=== PATIENT | female | born 1985 | race Two or more races ===

== ENCOUNTER → 2021-04-01 15:01 | Outpatient (BNVA) | payer OTHER, SELFPAY | PROVIDERS: PCP Nurse Practitioner Community Health; Visit Provider Obstetrics & Gynecology | DX: Z13.89 Encounter for screening for other disorder (principal) | CPT/HCPCS: 99202 ==

== ENCOUNTER 2021-05-22 08:13 | Outpatient (REF) | payer OTHER, SELFPAY ==
[2021-05-22 15:05] LABS: CT PCR NOT DETECTED (Not Detect.); NG PCR NOT DETECTED (Not Detect.)
== END 2021-05-22 08:14 | disposition home or self-care (01) ==
LOC: HO.LAB 08:13
PROVIDERS: PCP Nurse Practitioner Community Health; Visit Provider Obstetrics & Gynecology
DX: Z30.430 Encounter for insertion of intrauterine contraceptive device (principal); E78.00 Pure hypercholesterolemia, unspecified
CPT/HCPCS: 58300; 87491; 87591

== ENCOUNTER → 2021-06-24 11:31 | Outpatient (BNVA) | payer OTHER, SELFPAY | PROVIDERS: PCP Nurse Practitioner Community Health; Visit Provider Obstetrics & Gynecology | DX: Z30.431 Encounter for routine checking of intrauterine contraceptive device (principal) | CPT/HCPCS: 81003; 81025; 99212 ==

== ENCOUNTER 2021-12-04 13:10 | Outpatient (REF) | payer OTHER, SELFPAY ==
[2021-12-04 17:52] LABS: CT PCR NOT DETECTED (Not Detect.); NG PCR NOT DETECTED (Not Detect.)
[2021-12-12 12:46] LABS: HPV mRNA E6/E7 rflx Not Detected (Not Detected)
== END 2021-12-04 13:11 | disposition home or self-care (01) ==
LOC: HO.LAB 13:10
PROVIDERS: PCP Nurse Practitioner Community Health; Visit Provider Obstetrics & Gynecology
DX: Z01.419 Encounter for gynecological examination (general) (routine) without abnormal findings (principal); N93.9 Abnormal uterine and vaginal bleeding, unspecified; Z32.02 Encounter for pregnancy test, result negative; Z97.5 Presence of (intrauterine) contraceptive device
CPT/HCPCS: 81025; 87491; 87591; 87624; 88142; 99212

== ENCOUNTER 2021-12-06 10:03 | Outpatient (REF) | payer OTHER, SELFPAY ==
[2021-12-06 11:06] LABS: Hematocrit 38.5 % (37.0-47.0); Hemoglobin 12.9 g/dl (12.0-16.0); Mean Corpuscular HGB Conc 33.5 g/dl (31.0-35.0); Mean Corpuscular Hemoglobin 28.8 pg (27.0-33.0); Mean Corpuscular Volume 85.9 fL (80.0-98.0); Platelet Count 225 X10*3/uL (160-400); Red Blood Count 4.48 X10*6/uL (4.20-5.50); Red Cell Distribution Width 12.5 % (11.0-16.0); White Blood Count 5.2 X10*3/uL (4.8-10.8)
[2021-12-06 11:58] LABS: HCG Quantitative < 2 mIU/mL; TSH reflex Free T4 0.94 uIU/mL (0.32-4.0)
== END 2021-12-06 10:04 | disposition home or self-care (01) ==
LOC: HO.LAB 10:03
PROVIDERS: Visit Provider Obstetrics & Gynecology
DX: N93.9 Abnormal uterine and vaginal bleeding, unspecified (principal)
CPT/HCPCS: 36415; 84443; 84702; 85027

== ENCOUNTER 2021-12-10 16:10 | Outpatient (REF) | payer OTHER, SELFPAY ==
--- NOTE | ~2021-12-10 | US_ITS ---
EXAMINATION: US PELVIS CLINICAL INFORMATION: Abnormal uterine and vaginal bleeding. COMPARISON: None TECHNIQUE: Ultrasound of the pelvis is performed using both transabdominal and transvaginal transducers along with Doppler. Transvaginal imaging is performed due to inadequate visualization transabdominally. FINDINGS: Uterus: The uterus is anteverted and measures 11.4 cm in length, 4.6 mL in AP and 6.9 cm in transverse dimension. The double wall endometrium is not optimally visualized due to an IUD in place. It roughly measures 0.7 cm in thickness. The uterus is smooth in contour and has normal myometrial echogenicity. No visible fibroid. Adnexa: Both ovaries are visualized. There is normal color flow to the adnexa. There is no ovarian torsion. There is no pelvic ascites or fluid collection. It appears unremarkable Right ovary measures 4.5 x 1.9 x 3.1 cm and volume 13.9 mL. The ovary appears unremarkable. There is anechoic cyst measuring 1.8 x 1.5 x 1.3 cm. Left ovary measures 2.5 x 1.2 x 2.0 cm and volume 3.1 mL. There is small amount of free fluid in the cul-de-sac. US/US pelvic and transvaginal IMPRESSION: There is intrauterine contraceptive device in correct position. There is anechoic cyst right ovary measuring 1.8 cm. The left ovary is unremarkable. There is small amount of free fluid in the cul-de-sac.
== END 2021-12-10 16:11 | disposition home or self-care (01) ==
LOC: HO.US 16:10
PROVIDERS: Visit Provider Obstetrics & Gynecology
DX: N93.9 Abnormal uterine and vaginal bleeding, unspecified (principal)
CPT/HCPCS: 76830; 76856

== ENCOUNTER 2021-12-24 09:12 | Outpatient (REF) | payer OTHER, SELFPAY | END 2021-12-24 09:13 | disposition home or self-care (01) | LOC: HO.LAB 09:12 | PROVIDERS: Visit Provider Obstetrics & Gynecology | DX: Z30.432 Encounter for removal of intrauterine contraceptive device (principal); N93.9 Abnormal uterine and vaginal bleeding, unspecified | CPT/HCPCS: 58100; 58301; 88305; 99212 ==

== ENCOUNTER → 2022-01-16 08:22 | Outpatient (BNVA) | payer OTHER, SELFPAY | PROVIDERS: Visit Provider Obstetrics & Gynecology | DX: N93.9 Abnormal uterine and vaginal bleeding, unspecified (principal) | CPT/HCPCS: 99212 ==

== ENCOUNTER → 2022-04-23 13:10 | Outpatient (BNVA) | payer OTHER, SELFPAY | PROVIDERS: PCP Internal Medicine; Visit Provider Obstetrics & Gynecology | DX: Z30.9 Encounter for contraceptive management, unspecified (principal) | CPT/HCPCS: 99212 ==

== ENCOUNTER 2025-03-21 09:10 | Outpatient (REF) | payer OTHER, SELFPAY ==
[2025-03-21 13:39] LABS: MANUAL DIFF FLAG NO
[2025-03-21 13:42] LABS: Hematocrit 37.8 % (37.0-47.0); Hemoglobin 12.4 g/dl (12.0-16.0); Mean Corpuscular HGB Conc 32.8 g/dl (31.0-35.0); Mean Corpuscular Hemoglobin 27.8 pg (27.0-33.0); Mean Corpuscular Volume 84.8 fL (80.0-98.0); Red Blood Count 4.46 X10*6/uL (4.20-5.50); White Blood Count 4.7 X10*3/uL (4.8-10.8)
[2025-03-21 13:43] LABS: Imm Gran Abs Auto 0.01 X10*3/uL (0.00-0.03); Imm Gran Pct Auto 0.2 % (0.0-0.4); Lymphocytes Absolute Auto 1.5 X10*3/uL (1.2-4.9); NRBC Abs Auto 0.000 X10*3/uL (0.0-0.012); NRBC Pct Auto 0.0 /100WBC (0.0-0.2); Platelet Count 253 X10*3/uL (160-400)
[2025-03-21 14:09] LABS: Alanine Aminotransferase 11 U/L (0-31); Aspartate Amino Transferase 19 U/L (5-31); Estimated Glomerular Filt Rate > 60
[2025-03-22 09:58] LABS: Anti Nuclear Antibody Screen NEGATIVE (NEGATIVE)
== END 2025-03-21 09:11 | disposition home or self-care (01) ==
LOC: HO.HKASLDS 09:10
PROVIDERS: PCP Internal Medicine; Visit Provider Internal Medicine Rheumatology
DX: M79.641 Pain in right hand (principal); M79.642 Pain in left hand; Z79.899 Other long term (current) drug therapy
CPT/HCPCS: 36415; 82565; 84450; 84460; 85025; 85652; 86038; 86140; 99212

== ENCOUNTER 2025-03-21 09:10 | Outpatient (AMB) | payer OTHER, SELFPAY ==
[2025-03-21 09:16] VITALS: BP 100/70; PULSE 82; O2SAT 97; BMI 28.8
--- NOTE | 2025-03-21 09:16 | A.OFFVIS_ITS ---
Vital Signs 03/21/25 09:16 Height 5 ft 6 in Weight 178 lb 9.191 oz BMI 28.8 BP 100/70 Blood Pressure Location Lt brachial Position Sitting Pulse 82 Pulse Source Pulse Oximeter Pulse Oximetry (%) 97 Oxygen Delivery Method Room Air Intake Visit Reasons: OA/ join pain Intake Note: Patient presents today for arthritis.PAtients states that she has been having bilateral hand pain for the past 2 months. Accompanied by: Self / Same As Patient Allergies No Known Allergies Allergy (Verified 03/21/25 09:16) HPI HPI OA/ join pain: Details: I last saw patient November 2023. She is having pain and stiffness in hands all day. Pain in her hands have progressed involving more joints in hands and now bilateral. In the past she was experiencing most of her pain localized to right MCP radiating down her finger. A year ago she had an episode of pain in her right 5th MCP with joint swelling resolved with meloxicam. Sometimes she has pain in elbows. Her elbows feels stuck when in position too long. Takes ibuprofen 600mg every 6-8 hours. Takes NSAID at night to help her sleep. Increase pain with activity. She went to PT for back pain. Intermittent back pain. She wakes up with back pain sometimes. She has pain in upper back pain. Her son was recently diagnosed with brain cancer. He underwent surgery to remove the cancer and now we will be getting chemo and radiation. [facility] Medical History (Updated 03/21/25 @ 21:41 by Arturo Means MD) Arthralgia Hyperlipidemia High cholesterol Surgical History (Updated 10/08/22 @ 14:46 by MANUEL Quispe) Hx of dilation and curettage Family History (Updated 10/08/22 @ 15:35 by MANUEL Quispe) Maternal Grandfather Coronary artery disease Father Diabetes Hyperlipidemia Mother Prediabetes Social History Household Members: Spouse and Children Housing: House Alcohol intake: never Patient Tobacco Use Status: Never used Tobacco Sexual orientation: Straight/Heterosexual Gender identity: Female Female Reproductive History Menstrual Age of Menarche: 11 Physical Exam Vital Signs: Last Vital Signs Pulse 82 03/21/25 09:16 BP 100/70 03/21/25 09:16 Pulse Ox 97 03/21/25 09:16 Oxygen Delivery Method Room Air 09/23/25 09:16 BMI result Body Mass Index 28.8 Const Other: General: Comfortable CVS: RRR Respiratory: clear to auscultation bilaterally. Good respiratory effort Skin: No lesions seen MSK: Tender to palpate right 5th MCP, 3rd, 4th PIP, left 2nd MCP, 2nd and 3rd PIP. No synovitis. Weak network specialist. Normal range of motion of upper extremities and lower extremities. No MTP tenderness. Assessment & Plan Assessment & Plan (1) Bilateral hand pain: Comment: Progressive worsening polyarthralgias now involving both hands with joint stiffness all day and night is concerning for inflammatory arthritis. Initially she had right MCP synovitis resolved with meloxicam. X-rays bilateral hands from 2021 were normal with negative rheumatoid factor, anti CCP antibody and HLA B27. She had slight elevation CRP May 2022 at my 1st visit with patient. Code(s): M79.641 - Pain in right hand; M79.642 - Pain in left hand Category: Medical Plan: I have ordered baseline labs including inflammatory markers and CHAD. Bilateral hand x-rays ordered If above workup is unremarkable, I will need to order MRI of left hand with and without contrast to evaluate for subclinical inflammatory arthritis as it will exchange engineer with addition of DMARD therapy Orders: Orders Creatinine Today M79.641 - Pain in right hand, M79.642 - Pain in left hand Aspartate Amino Transferase Today M79.641 - Pain in right hand, M79.642 - Pain in left hand XR Hand Bilat min 3v Today M79.641 - Pain in right hand, M79.642 - Pain in left hand Erythrocyte Sedimentation Rate Today M79.641 - Pain in right hand, M79.642 - Pain in left hand, Z79.899 - Other meat inspector (current) drug therapy C Reactive Protein Today M79.641 - Pain in right hand, M79.642 - Pain in left hand, Z79.899 - Other meat inspector (current) drug therapy Complete Blood Count Auto Diff Today M79.641 - Pain in right hand, M79.642 - Pain in left hand Alanine Aminotransferase Today M79.641 - Pain in right hand, M79.642 - Pain in left hand CHAD Reflex Titer and Pattern Today M79.641 - Pain in right hand, M79.642 - Pain in left hand Coding Level of Care Code Est Pt Level 4 (03246) Complex EM visit Add On G2211 Diagnoses Bilateral hand pain M79.641; M79.642
--- OUTSIDE RECORDS SUMMARY | 2025-03-21 10:41 | XMS_ITS ---
Author Name [facility] Organization Unknown Care Team Organization Name Specialty Phone Email Start Date End Da te [facility] Giselle Martinez Primary Care 04/28/202302/14 4 [facility] LEXII CONNELL Primary Care [email or web address] 04/01/2023 4 [facility] Marleen Mullins Primary Care 05/06/202201/27 4
--- OUTSIDE RECORDS SUMMARY | 2025-03-21 10:41 | XMS_ITS | Clinical Summary ---
Author Organization [facility] Address [address] [place] [address] Phone Care Team Providers Care Bender Helper Name Role Phone Giselle Martinez DO Primary Care Provider [phone] Allergies No known active allergies Medications Tri-Estarylla 0.18/0.215/0.25 mg-35 mcg (28) per tablet TAKE 1 TABLET BY MOUTH EVERY DAY 28 tablet 11 05/02/2024 Active meloxicam (MOBIC) 15 mg tablet Take 1 tablet (15 mg total) by mouth 1 (one) time each day. 10/07/2023 Active cholecalciferol (VITAMIN D-3) 50 mcg (2,000 unit) capsule TAKE 1 CAPSULE BY MOUTH EVERY DAY 90 capsule 3 06/18/2024 Active ferrous sulfate 325 mg (65 mg elemental iron) tablet TAKE 1 TABLET BY MOUTH EVERY DAY 90 tablet 1 06/17/2024 Active celecoxib (CeleBREX) 200 mg capsule TAKE 1 TABLET TWICE A DAY WITH FOOD NEEDED PAIN 12/16/2023 Active magnesium oxide (MAG-OX) 400 mg magnesium tablet Take 1 tablet (400 mg total) by mouth 1 (one) time each day. 30 tablet 2 08/15/2024 Active riboflavin (VITAMIN B2) 400 mg tablet TAKE 1 TABLET (400 MG TOTAL) BY MOUTH 2 TIMES A DAY 60 tablet 2 08/15/2024 Active ergocalciferol (VITAMIN D-2) 1,250 mcg (50,000 unit) capsule Take 1 capsule (50,000 Units total) by mouth 1 (one) time per week. 4 each 11 08/18/2024 02/20/202 6 Active amitriptyline (ELAVIL) 25 mg tablet Take 1 tablet (25 mg total) by mouth 1 (one) time each day. 30 tablet 2 10/25/2024 Active Active Problems Problem Noted Date Diagnosed Date Intermittent palpitations 07/27/2024 Nonintractable episodic headache 07/27/2024 Iron deficiency anemia 07/27/2024 Arthralgia of multiple joints 10/12/2023 Overview (06/06/2024): Followed by arthritis center. Last seen in 2023. Continue Meloxicam and Tylenol Seasonal allergies 10/22/2018 Hyperlipidemia 09/16/2016 Overview (06/06/2024): Pt states her pcp at [facility] monitors her cholesterol, she is not on any medications Immunizations Name Administration Dates Next Due Hep B, Unspecified 12/02/2012 Pfizer SARS-CoV-2 COVID-19, mRNA, LNP-S, preservative free 05/11/2021 Tdap Tetanus diptheria acell ular pertussis (Boostrix; Adacel) 7yo and older 10/14/2018 Surgical History Surgery Date Site/Laterality Comments OTHER SURGICAL HISTORY 2004 PROCEDURE: NE DILATION & CURETTAGE DX&/THER NONOBSTETRIC OTHER SURGICAL HISTORY 2005 PROCEDURE: NE DILATION & CURETTAGE DX&/THER NONOBSTETRIC Medical History Medical History Date Comments Allergic rhinitis DX:Allergic rh initis Hyperlipidemia DX:Hyperlipidemi a; COMMENT: managed by pcp, no medications Arthralgia of both hands 2015; now resolved DX:A rthralgia of both hands; COMMENT: Probably DJD of hands Solar urticaria 09/16/2016 DX:Solar urticar ia Family History Medical History Relation Name Comments No Known Problems Brother 1 Breast cancer Cousin Diabetes Father hyperlipidemia Coronary artery disease Maternal Grandfather Other: Prediabetes Mother Stroke Mother's side great aunt Other: down syndrome Other husbands son Relation Name Status Comments Brother 1 Alive Brother 2 Alive Brother 3 Alive Cousin Alive Father Alive Maternal Grandfather Mother Alive Mother's side Other husbands son Alive Social History Tobacco Use Types Packs/Day Years Used Date Smoking Tobacco: Never Smokeless Tobacco: Never Tobacco Cessation:Counseling Given: Not Answered Alcohol Use Standard Drinks/Week Comments No 0 (1 standard drink = 0.6 oz pur e alcohol) Comments No Sex and Gender Information Value Date Recorded Sex Assigned at Female 08/03/2024 12:52 PM EST Legal Sex Female 5:45 PM EST Gender Identity Female 08/03/2024 12:51 PM EST Sexual Orientation Straight 08/03/2024 12 :52 PM EST 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 Para Term AB IAB SAB Ectopic Multiple Livin g Live Births 5 3 3 3 3 Date Outcome GA Total Labor Labor/2nd/3rd Weight Sex Type Anes PTL Maye A1 A5 Name Clin 004 Term 41w 0d 4536 g (160 oz) F Vag-S pont None N Livin g [facility], fob 1 2004 2006 012 Term 41w 0d 3997 g (141 oz) M Vag-V acuum None Livin g dr garibay Complications: Intolera nce,Oligohydramnios Delivery Location:[facility] Comments:NRFHR , IOL, fob 2 019 Term 41w 4d M Vag-S pont Livin g 8 9 A Castillo, CNM Delivery Location:[facility] Last Filed Vital Signs Vital Sign Reading Time Taken Comments Blood Pressure 102/65 11/28/2024 1:24 PM EDT Pulse 90 11/28/2024 1:24 PM EDT Temperature 36.7 C (98 F) 11/28/2024 1:24 PM EDT Respiratory Rate - - Oxygen Saturation 100% 11/28/2024 1:24 PM EDT Inhaled Oxygen Concentration - - Weight 82.6 kg (182 lb) 10/25/2024 1:26 PM EDT Height 167.6 cm (5' 6 ) 10/25/2024 1:26 PM EDT Body Mass Index 29.38 10/25/2024 1:26 PM EDT Plan of Treatment Upcoming Encounters Date Type Department Care Team (Late st Contact Info) Description 04/19/2025 8:30 AM EDT Office Visit [facility] [address] [place] [id number] Rachael Abdi PA [address] [place] [address] Health Maintenance Due Date Last Done Comments Hepatitis B Vaccines (2 of 3 - 19+ 3-dose series) 12/30/2012 12/02/2012 Hepatitis C Screening 05/31/2022 Social Influencers of Health Screening 05/31/2022 Depression Screening 06/29/2024 02/02/2024 COVID-19 Vaccine (2 - 2024-2 6 season) 2025 05/11/2021 Influenza Vaccine (#1) 2025 Breast Cancer Screening 08/09/2026 08/09/2024 Cholesterol Screening (Lipid Panel) 04/03/2028 04/03/2023 Cervical Cancer Screening: HPV 04/27/2028 04/27/2023 DTaP,Tdap,and Td Vaccines (2 - Td or Tdap) 10/14/2028 10/14/2018 HIV Screening Completed 05/05/2018 HIB Vaccines Aged Out No longer eligi ble based on patient's age to complete this topic HPV Vaccines Aged Out No longer eligi ble based on patient's age to complete this topic Hepatitis A Vaccines Aged Out No long er eligible based on patient's age to complete this topic IPV Vaccines Aged Out No longer eligi ble based on patient's age to complete this topic MMR Vaccines Aged Out No longer eligi ble based on patient's age to complete this topic Meningococcal ACWY Vaccine Aged Out N o longer eligible based on patient's age to complete this topic Meningococcal B Vaccine Aged Out No l onger eligible based on patient's age to complete this topic Pneumococcal Vaccine: Pediat rics (0 to 5 Years) and At-Risk Patients (6 to 49 Years) Aged Out No longer eligi ble based on patient's age to complete this topic RSV Immunization Patients Un andie 20 months Aged Out No longer eligible b ased on patient's age to complete this topic Varicella Vaccines Aged Out No longer eligible based on patient's age to complete this topic Procedures Procedure Name Priority Date/Time Associated Diagnosis Comments MG MAMMO DIGITAL SCREENING W KAREN BILAT Routine 08/09/2024 9:13 AM EST Encounter for screening for malignant neoplasm of breast, unspecified screening modality DEPRESSION SCREENING Routine 02/02/2024 HPV Routine 04/27/2023 LIPID PANEL Routine 04/03/2023 HIV SCREENING Routine 05/05/2018 from Last 3 Months or Most Recently Relevant to Health Maintenance Results * MG Mammo Digital Screening w Karen bilat (08/09/2024 9:13 AM EST) Anatomical Region Laterality Modality Breast Bilateral Mammography 08/09/2024 3:51 PM EST Impressions 08/09/2024 3:53 PM EST No mammographic evidence of malignancy. BI-RADS: Category 1: Negative RECOMMENDATION(S): 1: Routine screening mammogram BILATERAL in 1 year. -------- FINAL REPORT -------- Dictated By: HEVER GORDON Dictated Date: 08/09/2024 15:51 ET Assigned Physician: HEVER GORDON Reviewed and Electronically Signed By: HEVER GORDON Signed Date: 08/09/2024 15:53 ET Workstation ID: [id number] Transcribed By: Self Edit Transcribed Date: 08/09/2024 15:51 ET Narrative 08/09/2024 3:53 PM EST EXAM: MG MAMMO DIGITAL SCREENING W KAREN BILAT EXAM DATE AND TIME: 08/09/2024 8:59 AM HISTORY: Breast cancer screen, avg risk, asymptomatic (Age => 40y) COMPARISON: This is a baseline examination. TECHNIQUE: Bilateral digital breast tomosynthesis was performed in the MLO projection. Computer aided detection with Pure Focus 3D 3.1 was employed. TISSUE DENSITY: b: There are scattered areas of fibroglandular density. FINDINGS: No suspicious masses, grouped microcalcifications, or areas of architectural distortion are seen. The skin and vascularity are unremarkable. Procedure Note Hever Gordon MD - 08/09/2024 EXAM: MG MAMMO DIGITAL SCREENING W KAREN DAUGHERTYAT EXAM DATE AND TIME: 08/09/2024 8:59 AM HISTORY: Breast cancer screen, avg risk, asymptomatic (Age => 40y) COMPARISON: This is a baseline examination. TECHNIQUE: Bilateral digital breast tomosynthesis was performed in the MLOprojection. Computer aided detection with Pure Focus 3D 3.1 wasemployed. TISSUE DENSITY: b: There are scattered areas of fibroglandular density. FINDINGS: No suspicious masses, grouped microcalcifications, or areas ofarchitectural distortion are seen. The skin and vascularity areunremarkable. IMPRESSION: No mammographic evidence of malignancy. BI-RADS: Category 1: Negative RECOMMENDATION(S): 1: Routine screening mammogram BILATERAL in 1 year. -------- FINAL REPORT -------- Dictated By: HEVER GORDON Dictated Date: 08/09/2024 15:51 ET Assigned Physician: HEVER GORDON Reviewed and Electronically Signed By: HEVER GORDON Signed Date: 08/09/2024 15:53 ET Workstation ID: [id number] Transcribed By: Self Edit Transcribed Date: 08/09/2024 15:51 ET Giselle Martinez DO IM BI PROCEDURES Final Result * Depression Screening (02/02/2024) Pathologist [facility] Depression Screening abstracted Historical Provider HEALTH MAINTENANCE Final Result * Cervical Cancer Screening: HPV (04/27/2023) Pathologist [facility] Cervical Cancer Screening: HPV negative abstracted Historical Provider HEALTH MAINTENANCE Final Result * (ABNORMAL) Lipid panel (04/03/2023) Pathologist [facility] LDL/HDL Ratio 5(A) 0 - 4 Triglycerides 69 0 - 150 mg/dL Cholesterol 261(A) 0 - 200 mg/dL HDL 55 >=40 mg/dL LDL Cholesterol 193(A) 0 - 100 mg/dL Blood Venous blood specimen / Unknown Historical Provider LAB BLOOD ORDERABLES Glenys l Result * HIV Screening (05/05/2018) HIV Screening abstracted Historical Provider HEALTH MAINTENANCE Final Result from Last 3 Months or Most Recently Relevant to Health Maintenance Insurance [facility] [place] [address] Care Teams Bender Helper Relationship Specialty Start Date End Date Giselle Martinez DO [address] [place] [address] PCP - General 03/26/23
== END 2025-03-21 10:03 | disposition home or self-care (01) ==
LOC: HO.RHES 09:10
PROVIDERS: PCP Internal Medicine; Visit Provider Internal Medicine Rheumatology
DX: M79.641 Pain in right hand (principal); M79.642 Pain in left hand
CPT/HCPCS: 99214

== ENCOUNTER 2025-03-29 11:42 | Outpatient (REF) | payer OTHER, SELFPAY ==
--- NOTE | ~2025-03-29 | XR_ITS ---
Exam: XR HAND 3 VIEWS BILATERAL, bilateral hand x-rays TECHNIQUE: AP, lateral, and oblique views upper extremity, bilateral hands INDICATION: M79.641 - Pain in right hand COMPARISON: None available. FINDINGS: RIGHT HAND: Joint spaces are preserved. No osteophytes are evident. No erosions are identified. There is good bone mineral density. No fractures are evident. LEFT HAND: Joint spaces are preserved. No osteophytes are evident. No erosions are identified. There is good bone mineral density. No fractures are evident. XR/XR Hand Bilat min 3v IMPRESSION: Right hand: Unremarkable right hand Left hand: Unremarkable left hand Electronically signed by: Mychal Adam MD 03/29/2025 12:08 PM EDT
--- OUTSIDE RECORDS SUMMARY | 2025-03-29 13:19 | XMS_ITS | Clinical Summary ---
Author Organization [facility] Address [address] [place] [address] Phone Care Team Providers Care Natural Resources Faculty Member Name Role Phone Giselle Martinez DO Primary Care Provider Allergies No known active allergies Medications Tri-Estarylla [...] Overview (06/06/2024): Pt states her pcp at [facility] monitors her cholesterol, she is not on any medications Immunizations Immunization Administration Dates Next Due Hep B, Unspecified 12/02/2012 Pfizer SARS-CoV-2 COVID-19, mRNA, LNP-S, preservative free 05/11/2021 Tdap Tetanus diptheria acell ular pertussis (Boostrix; Adacel) 7yo and older 10/14/2018 Surgical History Surgery Date Site/Laterality Comments OTHER SURGICAL HISTORY 2004 PROCEDURE: OR DILATION & CURETTAGE DX&/THER NONOBSTETRIC OTHER SURGICAL HISTORY 2005 PROCEDURE: OR DILATION & CURETTAGE DX&/THER NONOBSTETRIC Medical History [...] 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 Not on file Not [...] Vag-S pont None N Livin g [facility] fob 1 2004 2006 012 Term 41w 0d 3997 g (141 oz) M Vag-V acuum None Livin g dr garibay Complications: Intolera nce,Oligohydramnios Delivery Location:[facility] Comments:NRFHR , IOL, fob 2 019 Term 41w 4d M Vag-S pont Livin g 8 9 A Castillo, CNM Delivery Location:[facility] Last Filed Vital Signs Vital Sign Reading [...] Description 04/19/2025 8:30 AM EDT Office Visit [facility] [address] [place] [phone] Rachael Abdi PA [address] [place] [address] Health Maintenance Due Date Last Done Comments HPV Vaccines (1 - 3-dose SCD M series) 2011 Hepatitis B Vaccines (2 of 3 - [...] (2 - Td or Tdap) 10/14/2028 10/14/2018 RSV Immunization Adult Patie nts (1 - 1-dose 75+ series) 2059 HIV Screening Completed 05/05/2018 HIB Vaccines Aged [...] Procedure Name Priority Date/Time Associated Diagnosis Comments EXTERNAL XRAY REPORT 03/29/2025 EXTERNAL CLINICAL LAB 03/22/2025 MG MAMMO DIGITAL SCREENING W KAREN BILAT Routine 08/09/2024 9:13 AM EST Encounter for screening for malignant neoplasm of breast, unspecified screening modality DEPRESSION SCREENING Routine 02/02/2024 HPV Routine 04/27/2023 LIPID PANEL Routine 04/03/2023 HIV SCREENING Routine 05/05/2018 from Last 3 Months or Most Recently Relevant to Health Maintenance Results * External Xray Report (03/29/2025) Anatomical Region Laterality Modality Radiographic Bing ging Provider [facility] IMG XR PROCEDURES Final Result * External clinical lab (03/22/2025) Provider [facility] LAB BLOOD ORDERABLES Fin al Result * MG Mammo Digital Screening w Karen [...] Signed Date: 08/09/2024 15:53 ET Workstation ID: [id number] Transcribed By: Self Edit Transcribed Date: 08/09/2024 15:51 ET Narrative 08/09/2024 3:53 PM EST EXAM: MG MAMMO DIGITAL SCREENING W KAREN BILAT EXAM DATE AND TIME: 08/09/2024 8:59 AM HISTORY: Breast cancer screen, avg risk, asymptomatic (Age => 40y) COMPARISON: This is a baseline examination. TECHNIQUE: Bilateral digital breast tomosynthesis was performed in the MLO projection. Computer aided detection with iCAD ProFound AI 3D 3.1 was employed. TISSUE DENSITY: b: [...] in the MLOprojection. Computer aided detection with iCAD ProFound AI 3D 3.1 wasemployed. TISSUE DENSITY: b: There [...] Signed Date: 08/09/2024 15:53 ET Workstation ID: [id number] Transcribed By: Self Edit Transcribed Date: 08/09/2024 15:51 ET Giselle Martinez DO IM BI PROCEDURES Final Result * Depression Screening (02/02/2024) Depression Screening abstracted Historical Provider HEALTH MAINTENANCE Final Result * Cervical Cancer Screening: HPV (04/27/2023) Pathologist [facility] Cervical Cancer Screening: HPV negative abstracted Historical Provider HEALTH MAINTENANCE Final Result * (ABNORMAL) Lipid panel (04/03/2023) [facility] LDL/HDL Ratio 5(A) 0 - 4 Triglycerides 69 0 - 150 mg/dL Cholesterol 261(A) 0 - 200 mg/dL HDL 55 >=40 mg/dL LDL Cholesterol 193(A) 0 - 100 mg/dL Blood Venous blood specimen / Unknown Historical Provider LAB BLOOD ORDERABLES Glenys l Result * HIV Screening (05/05/2018) [facility] HIV Screening abstracted Historical Provider HEALTH MAINTENANCE Final Result from Last 3 Months or Most Recently Relevant to Health Maintenance Insurance [facility] Care Teams Natural Resources Faculty Member Relationship Specialty Start Date End Date Giselle Martinze DO [address] [place] [address] PCP - General 03/26/23
== END 2025-03-29 11:43 | disposition home or self-care (01) ==
LOC: HO.HMGCX 11:42
PROVIDERS: PCP Internal Medicine; Visit Provider Internal Medicine Rheumatology
DX: M79.641 Pain in right hand (principal); M79.642 Pain in left hand
CPT/HCPCS: 73130

== ENCOUNTER → 2025-03-29 11:46 | Outpatient (BNV) | payer OTHER, SELFPAY | PROVIDERS: PCP Internal Medicine; Visit Provider Radiology Diagnostic Radiology | DX: M79.641 Pain in right hand (principal) | CPT/HCPCS: 73130 ==

== ENCOUNTER 2025-05-06 13:08 | Outpatient (REF) | payer OTHER, SELFPAY ==
--- OUTSIDE RECORDS SUMMARY | 2025-05-01 12:39 | XMS_ITS | Encounter Summary ---
Author Organization [facility] Address [address] [place] [phone] Phone Care Team Providers Care Oracle Programmer Name Role Phone Ewa Martinezmanvadim OLEA Primary Care Provider [phone] Reason for Referral * Consultation (Routine) - New Request Specialty Diagnoses / Procedures Referred By Fern valentino Referred To Contact Neurology Teri Hill PA-C [address] [place] [phone] Phone: tel: fax: mailto:ANA [email or web address] Referral ID Status Reason Start Date Expiration Date V isits Requested Visits Authorized [id number] New Request 05/01/2025 05/01/2026 1 1 Reason for Visit * Reason Comments Headache Encounter Details Date Type Department Care Team ([facility] Contact Info) Description 05/01/2025 12:39 PM EST - 05/01/2025 2:36 PM EST Emergency [facility] Emergency Dept [address] [place] [phone] Faheem Gil MD, MPH [facility] EOO - [address] [place] [phone] [email or web address] Discharge Disposition: Home or Self Care Social History Tobacco Use Types Packs/Day Years Used Date Smoking Tobacco: Never Assessed Education Answer Date Recorded Are you interested in more education? Not on halima e 05/01/2025 Are you concerned about learning? Not on file 05/01/2025 No 05/01/2025 No 05/01/2025 Digital Access Answer Date Recorded No 05/01/2025 No 05/01/2025 Reliable internet access at home? Not on file 05/01/2025 Device with a working camera? Not on file Intimate Partner Violence Answer Date R ecorded Are you denied basic needs s uch as food, clothing, or medical care? No 05/01/2025 In the past 12 months have y ou been in a relationship with a person who hurts, threatens, or tries to control you? No 05/01/2025 Are you denied basic needs s uch as food, clothing, or medical care? No 05/01/2025 In the past 12 months have y ou been in a relationship with a person who hurts, threatens, or tries to control you? No 05/01/2025 Comments Unknown Sex and Gender Information Value Date Recorded Sex Assigned at Female 05/01/2025 12:47 PM EST Legal Sex Female 12:05 PM EST Gender Identity Female 05/01/2025 12:47 PM EST Sexual Orientation Not on file documented as of this encounter Last Filed Vital Signs Vital Sign Reading Time Taken Comments Blood Pressure 124/66 05/01/2025 2:19 PM EST Pulse 78 05/01/2025 2:19 PM EST Temperature 36.2 C (97.2 F) 05/01/2025 2:19 PM EST Respiratory Rate 16 05/01/2025 2:19 PM EST Oxygen Saturation 98% 05/01/2025 2:19 PM EST Inhaled Oxygen Concentration - - Weight - - Height - - Body Mass Index - - documented in this encounter Discharge Instructions * Discharge Instructions* Teri Hill PA-C - 05/01/2025 2:13 PM EST You were seen in the Emergency Department for your headaches. You were evaluated for your symptoms, and your exam was reassuring without concerning findings. Youwere provided with medications to alleviate your pain and nausea, which you reported helps your symptoms. Your symptoms may be related to tension headaches. Please see attached pamphlet for more details. Some further recommendations for your symptoms: - You should rest your neck and back. When in bed, find a position of comfort. - Avoid prolonged sitting as that might put more stress on your back. - Gentle stretching will also help - Use good body mechanics when lifting things and try not to lift anything over 15lbs until your pain gets better. - When lying down use a comfortable pillow to support the head. - Use ice packs every 20 minutes every 2-4 hours for the next few days. - Heat backs and massage can help reduce muscle spasms. You can alternate hot and cold treatments if you like. - You may take 600mg Ibuprofen by mouth (3 [id number] tabs) with food every 8 hours as neededfor pain AND/OR you may take 650mg Tylenol mouth every 8 hours as needed for pain. If your pain is hard to control, you can alternate Ibuprofen and Tylenol every 4 hours as prescribed above. You may also apply a lidocaine patch to your neck for pain control. Lidocaine patches (suchas Salonpas) can be obtained over the counter and work for 12 hours at a time. Please use per package directions. Based on your evaluation today, you should follow-up an outpatient neurologist for further evaluation, treatment and prevention of your symptoms. Please call [phone] to reach the scheduling office for the Adult Neurology Service. The hours for this number are 8:30AM-5:00PM. Even if a referral has already been placed, it is generally a good idea to check in at this number if you have not beencontacted within 1-2 days. You should also contact your primary care doctor's office to arrange for a routine follow-up appointment, to confirm that your condition is getting better and that no additional testing or therapy isneeded. If you do not currently have a primary care doctor, we strongly advise that you obtain one.If you are interested in obtaining an [facility] PCP, please call TDD (for Hearing Impaired) You should seek medical attention immediately if you have the following symptoms: - Fever > 100.4F and not better with fever medication. - Severely worsening headache, neck stiffness. - Uncontrollable vomiting. - Very dizzy, unsteady and not walking straight. - Convulsions or seizures. - Changes in vision, loss of vision. - Weakness in your arms or legs - Any other new, worsening, or changing symptoms, or for symptoms that are concerning to you. Thank you for your patience today, and we appreciate you seeking care at the [facility] Emergency Department. * Attachments The following attachments cannot be sent through Care Everywhere. * Tension Headache (PCOI) documented in this encounter ED Notes * Dexter Aguirre FNP - 05/01/2025 12:20 PM EST Emergency Department Screening Note 40F with HLD and migraines presenting with 3 weeks of headache unrelieved by aleve. No associated nausea or photophobia. No fevers or stiff neck. Sees a neurologist and is scheduled for a follow up in May. No fevers or chills. Increased stress recently. She had an MRI done in October with no acute abnormalities. Physical Exam Vitals reviewed. Constitutional: Appearance: Normal appearance. She is not ill-appearing. HENT: Head: Normocephalic and atraumatic. Eyes: Extraocular Movements: Extraocular movements intact. Pupils: Pupils are equal, round, and reactive to light. Cardiovascular: Rate and Rhythm: Normal rate and regular rhythm. Pulmonary: Effort: Pulmonary effort is normal. Musculoskeletal: Cervical back: Normal range of motion. Skin: General: Skin is warm and dry. Neurological: General: No focal deficit present. Mental Status: She is alert and oriented to person, place, and time. Psychiatric: Mood and Affect: Mood normal. Screening Plan: peripheral intravenous hydration. pain medication. IV migraine cocktail This is a screening examination only. The patient requires further examination and/or treatment to follow in the Emergency Department. Additional documentation for this visit may exist. * Eda Lind RN - 05/01/2025 12:07 PM EST Pt reports she's had headache for 3 weeks. Saw a doctor in October for the same thing but didn't followup. Taking advil for her headache which isn't helping much. No fever. No diarrhea. Hands and legs feel tingly sometimes. No injury to head or neck A&OX3, speaking in full clear sentences, well appearing pt, in no distress, resp even, non-labored, good ROM to head/neck * Teri Hill PA-C - 05/01/2025 12:05 PM EST Images from the original note were not included. [facility] Emergency Department History of Present Illness This is a 40 y.o. female with PMHx of migraines who is presenting to the Emergency Department with worsening headache. Patient reports she has been experiencing intermittent occipital headache for the past year. Had anMRI with outside hospital back in October which was reassuring, and had a follow-up appointment which she is unable to make it to. Reports increased stress, at [facility] quite frequently as her son is currently being treated for brain cancer. Has a follow-up appointment with neurology outside hospital in May. Patient reports for the past 3 weeks, she has noticed some increased severity and frequency of her headaches. Reports it is typically occipital head, she will wake up feeling well and would go about her day with worsening symptoms in the late afternoon and evening. Typically improves with ibuprofenand Tylenol but not always. Endorses that symptoms usually last for several hours in duration and th en resolved spontaneously. Endorses intermittent photophobia, but no associated nausea, vomiting, vision changes, dysarthria, focal weakness. Does endorse some paraspinal neck pain associated with symptoms, but no midline pain, no recent trauma or falls, no bladder or bowel incontinence, no focal weakness numbness or tingling. Physical Exam VS: BP 132/75 Pulse 72 Temp 36.6 ??C (97.9 ??F) (Temporal) Resp 18 SpO2 100% General: Patient is awake, alert & oriented x3. Nontoxic appearing, in no acute distress. HEENT: Head is normocephalic, atraumatic. EOMI. Nares patent. Mucus membranes are moist. Pupils areequal sized and reactive to light. Neck: Supple, full ROM, no midline tenderness no palpable step-offs or deformity. Pulmonary: Normal respiratory effort. Lungs clear to auscultation bilaterally; no wheezes, rales, or rhonchi. Chest wall non-tender to palpation. Cardiovascular: Regular rhythm and rate. No murmur, rub, or gallop. GI: Abdomen soft, non-tender, non-distended. No rebound or guarding. MSK: Normal ROM of upper and lower extremities. No lower extremity edema. No deformities or focal tenderness upon examination. Peripheral pulses intact and equal bilaterally. Neuro: AOx3, speech fluent and coherent. CN: CN II-XII intact, wo focal neuro deficits appreciated on exam. Strength: Bilateral UEs w/ 5/5 strength appreciated to biceps, triceps and wrist extension,Bilateral LEs w/ 5/5 strength appreciated with hip flexion, knee flexion/extension, dorsiflexion/plantar flexion. Sensory grossly intact and equal bilaterally. Psych: Normal mood and affect. Patient is cooperative during examination. MDM 40 y.o. female with PMHx of migraines presenting with increased frequency and severity of headachesfor the past 3 weeks. Vital signs WNL, normotensive and afebrile. Physical examination as above noteable for no focal deficits on physical exam. DDx includes complex migraine, electrolyte imbalance, dehydration, tension NAJERA, cervical radiculopathy. No recent head injury or blood thinner use to suspect intracranial bleed. No thunderclap sensation or sudden severe onset to suspect SAH. No systemic symptoms, fever or neck stiffness to raise concern for meningitis. Not positionally exacerbated, no associated N/V, so doubt mass effect/brain lesion, and patient had recent negative MRI and a of this year. No midline tenderness palpable step-offs or deformities, no recent trauma or neck manipulation to suspect C-spine fracture or injury. No associated dizziness lightheadedness and intermittent nature of symptoms reassuring its vertebral dissection no bladder or bowel incontinence, no evidence of cord compression. Diagnostics: No further imaging indicated at this time Therapeutics: Migraine cocktail Dispo: Pending workup and symptom improvement I reviewed external notes which were notable for NA I discussed management of this patient with NA Patient seen and discussed with ED Attending Results Labs Reviewed - No data to display No orders to display No consults were ordered If consults were ordered, refer to the consult documentation for additional information. ED Course ED Course as of 05/01/25 141ThuMay 01, 2025 141 Patient reassessed, endorses resolution of symptoms after migraine cocktail. Requesting referral to [facility] neurology, discussed methods of pain management at home, and strict return precautions. Patient verbalized understanding. Will be discharged at this time [BW] ED Course User Index [BW] Teri Hill PA-C Clinical Impressions as of 05/01/25 1413 Nonintractable headache, unspecified chronicity pattern, unspecified headache type Diagnosis/Diagnoses 1. Nonintractable headache, unspecified chronicity pattern, unspecified headache type Disposition Disposition at shift end time: Home Portions of the record may have been created with voice recognition software. Occasional wrong-wordor ooqfa-g-vnyx substitutions may have occurred due to the inherent limitations of voice recognition software. Read the chart carefully and recognize, using context, where substitutions have occurred. Teri Hill PA-C Emergency Medicine [facility] Teri Hill PA-C 05/01/251412 * Faheem Gil MD, MPH - 05/01/2025 12:05 PM EST Images from the original note were not included. ATTENDING NOTE Chief Complaint Patient presents with ??? Headache HPI: Alisson Ramsey is a 40 y.o. female who presents with headache. Patient does have a history of migraines, has been having headaches on and off for the past year. She did have an MRI to work this up back in October, which was essentially negative although she says that she did not want to get the contrastso never followed through with that part. She says that she is under a lot of stress because her son is being treated for a brain tumor here at [facility]. She wonders whether her headache is exacerbated by her stress. She describes the headache as being occipital but also on the right side of the apex, and occasionally has a pinching nature to it, but is mostly achy. She has no associated weakness, numbness, tingling in the unilateral extremity. She has no nausea or vomiting. No fever or chills. No neck stiffness. No recent injuries. She has been taking ibuprofen for the headache, which does provide a little bit of relief. Additional history and relevant clinical data were obtained from the following independent source: a review of the patient's problem list in the EMR.. Past medical/surgical history in the patient's medical record, which may affect the patient's risk of acute illness, include: No past medical history on file. There is no problem list on file for this patient. No past surgical history on file. Medications: Previous Medications No medications on file Allergies: No Known Allergies Social History: Social History Socioeconomic History ??? Marital status: Single Spouse name: Not on file ??? Number of children: Not on file ??? Years of education: Not on file ??? Highest education level: Not on file Occupational History ??? Not on file Tobacco Use ??? Smoking status: Not on file ??? Smokeless tobacco: Not on file Substance and Sexual Activity ??? Alcohol use: Not on file ??? Drug use: Not on file ??? Sexual activity: Not on file Other Topics Concern ??? Not on file Social History Narrative ??? Not on file Family History: No family history on file. Patient's vitals are within expected limits, considering the patient's presenting condition and past medical history. Physical Examination: Blood pressure 132/75, pulse 72, temperature 36.6 ??C (97.9 ??F), temperature source Temporal, resp. rate 18, SpO2 100%. Physical Exam General: Patient is awake and alert. Patient is nontoxic appearing. Oriented x3. Head/Eyes: The head is normocephalic and atraumatic. ENT: Patient's airway is patent. Neck: The neck is supple. Chest/Respiratory: Respiratory effort is normal. Musculoskeletal: The patient has a normal range of motion for all limbs and joints without pain or tenderness. No edema or muscular tenderness. Skin: The patient's visualized skin is unremarkable. Neurologic: The neurological exam shows no focal deficits. Motor function is intact. Cranial nervesare normal. Speech is fluent. Sensation is intact. Psychiatric: The patient is cooperative. Assessment, Plan and Medical Decision Making: Alisson Ramsey is a 40 y.o. female who presented to the ED with headache, which is either an exacerbation of her migraines, brought on by stress secondary to her son's illness, or combination of all of. My differential diagnosis includes, but is not limited to migraine versus tension/stress headache. Given the patient's history and presentation, we considered, but will not pursue brain imaging given that she had a negative MRI not too long ago and she has no focal neurologic symptoms or infectious symptoms now. We will treat the patient with migraine cocktail and IV fluids. If she is feeling better I think she can be safely discharged from the ED.. EKG: Not done Imaging: The imaging studies I independently interpreted include: None. The imaging studies below below reflects the progress of the patient while in the ED, but may include tests performed or resulted after I signed out the patient: No orders to display Labs: The labs below reflects the progress of the patient while in the ED, but may include tests performed or resulted after I signed out the patient: Labs Reviewed - No data to display Medications provided, including medications that require monitoring and parenteral controlled substances, include: Medications sodium chloride (NS) 0.9 % syringe flush 3 mL (has no administration in time range) lactated ringers IV Bolus 1,000 mL (1,000 mL Intravenous New Bag 05/01/25 1307) metoclopramide HCl (REGLAN) injection 10 mg (10 mg Intravenous Given 05/01/25 1300) ketorolac (TORADOL) injection 15 mg (15 mg Intravenous Given 05/01/25 1304) magnesium sulfate 1 gram/100 mL in D5W IVPB premix (0 g Intravenous Stopped 05/01/25 1348) acetaminophen (TYLENOL) tablet 975 mg (975 mg Oral Given 05/01/25 1259) External Discussions: To assist with the interpretation of the patient's symptoms, previous history, labs, imaging studies, and disposition, I discussed the patient with the following external providers: None Consultations: The following consultations were ordered: No consults were ordered Social Determinants of Health: The patients current clinical condition, treatment, and expected recovery are influenced by no obvious social barriers.. Code Status: I reviewed the patient's code status and made updates in the chart. Additional Medical Decision Making and Attestation: Attestation: I saw the patient as part of a shared visit with the advanced practice practitioner. I personally made or approved the management plan and take responsibility for the patient management. Differential and Working Diagnosis: Based on my initial evaluation, the working diagnoses are: Headache, possible migraine, possible tension headache secondary to stress. The patient's current presentation is not an acute exacerbation of the patients previous illness: . Disposition: I considered admission for the patient and determined: Admission is not indicated based on the patient's present condition. Dispo at the end of my shift: Patient discharged Home Faheem Gil MD, MPH The ED Course below reflects the progress of the patient while in the ED, but may include events that occurred after I signed out the patient. After their ED Evaluation (including portions that occurred after sign-out), the final clinical impression with this patient is: No diagnosis found. Final diagnoses: None ED Course as of 05/01/25 1412 ThuMay 01, 2025 1411 Patient reassessed, endorses resolution of symptoms after migraine cocktail. Requesting referral to [facility] neurology, discussed methods of pain management at home, and strict return precautions. Patient verbalized understanding. Will be discharged at this time [BW] ED Course User Index [BW] Teri Hill PA-C Clinical Impressions as of 05/01/25 1412 Nonintractable headache, unspecified chronicity pattern, unspecified headache type Faheem Gil MD, MPH 05/03/25 1019 documented in this encounter Plan of Treatment Scheduled Referrals Name Type Priority Associated Diagnoses Order Schedule Amb[place] referral [place] [facility] [place] - Employed Practices Outpatient Referral STAT Ordered: 05/01/2025 documented as of this encounter Visit Diagnoses Diagnosis Nonintractable headache, unspecified chronicity pattern, unspecified headache type- Primary documented in this encounter Administered Medications Inactive Administered Medications - up to 3 most recent administrations Medication Order MAR Action Action Date Dose Rate Site acetaminophen (TYLENOL) tablet 975 mg 975 mg, Oral, Once, On Thu05/01/25 at 1230, For 1 dose Given 05/01/2025 12:59 PM EST 975 mg ketorolac (TORADOL) injection 15 mg 15 mg, Intravenous, Once, On Thu05/01/25 at 1230, For 1 dose Given 05/01/2025 1:04 PM EST 15 mg lactated ringers IV Bolus 1,000 mL 1,000 mL, Intravenous, Administer over 30 Minutes, Once, On Thu05/01/25 at 1230, For 1 dose New Bag 05/01/2025 1:07 PM EST 1,000 mL 2000 mL/hr magnesium sulfate 1 gram/100 mL in D5W IVPB premix 1 g, Intravenous, Administer over 30 Minutes, at 200 mL/hr, Once, On Thu05/01/25 at 1230, For 1 dose New Bag 05/01/2025 1:09 PM EST 1 g 200 mL/hr metoclopramide HCl (REGLAN) injection 10 mg 10 mg, Intravenous, Once, On Thu05/01/25 at 1230, For 1 dose Given 05/01/2025 1:00 PM EST 10 mg sodium chloride (NS) 0.9 % syringe flush 3 mL 3 mL, Intravenous, As needed, line care, Starting on Thu05/01/25 at 1218, Per Institutional IV Line Care Policy. documented in this encounter Active and Recently Administered Medications Due to Daylight Saving Time, this section may contain times in both EDT and EST. Scheduled Medication Order 04/29/2025 04/30/2025 05/01/2025 acetaminophen (TYLENOL) tablet 975 mg (COMPLETED) 975 mg, Oral, Once, On Thu05/01/25 at 1230, For 1 dose 1259 (Given - Provid er: Saundra Anders RN) ketorolac (TORADOL) injection 15 mg (COMPLETED) 15 mg, Intravenous, Once, On Thu05/01/25 at 1230, For 1 dose 1304 (Given - Provid er: Saundra Anders RN) lactated ringers IV Bolus 1,000 mL (COMPLETED) 1,000 mL, Intravenous, Administer over 30 Minutes, Once, On Thu05/01/25 at 1230, For 1 dose 1307 (New Bag - Prov ider: Saundra Anders RN)1422 (Stopped - Provider: Dari Givens RN) magnesium sulfate 1 gram/100 mL in D5W IVPB premix (COMPLETED) 1 g, Intravenous, Administer over 30 Minutes, at 200 mL/hr, Once, On Thu05/01/25 at 1230, For 1 dose 1309 (New Bag - Prov ider: Saundra Anders RN)1348 (Stopped - Provider: Dari Givens RN) metoclopramide HCl (REGLAN) injection 10 mg (COMPLETED) 10 mg, Intravenous, Once, On Thu05/01/25 at 1230, For 1 dose 1300 (Given - Provid er: Saundra Anders RN) PRN Medication Order 04/29/2025 04/30/2025 05/01/2025 sodium chloride (NS) 0.9 % syringe flush 3 mL 3 mL, Intravenous, As needed, line care, Starting on Thu05/01/25 at 1218, Per Institutional IV Line Care Policy. documented in this encounter Care Teams Oracle Programmer Relationship Specialty Start Date End Date Giselle Martinez DO [address] [place] [id number] PCP - General Internal Medicine 05/01/25 documented as of this encounter Additional Source Comments The information contained in this document represents components of the legal health record. It is not the complete legal health record.[facility]
--- NOTE | ~2025-05-06 | MR_ITS ---
EXAMINATION: MR UPPER EXTREMITY WITHOUT CONTRAST, LEFT CLINICAL INFORMATION: Chronic hand pain. Evaluate for subclinical inflammatory arthritis. COMPARISON: X-ray 03/29/2025 TECHNIQUE: MRI of the hand was performed using routine sequences on a high-field scanner. Patient refused intravenous contrast. FINDINGS: BONE/JOINTS: Alignment is anatomic. No evidence of acute fracture or dislocation. No significant joint space loss, marginal osteophytes are seen. No erosive changes identified. Small low T1 signal focus in the distal ulna, probable bone island. No suspicious marrow signal changes. MUSCLE/TENDONS: Intact. No appreciable tenosynovitis. MEDIAN NERVE: Asymmetric prominence of the signal in the median nerve focally, as it courses in the carpal tunnel, could reflect physiological variation, neuritis cannot excluded. MR/MR hand LT wo con IMPRESSION: 1. No evidence of acute osseous findings. No evidence of acute fracture or dislocation. 2. No significant arthropathy is seen. 3. Small low T1 signal focus in the distal ulna, probably bone island 4. Focal ulnar nerve findings could represent physiological variation versus neuritis. Electronically signed by: Robe Mcallister MD 05/08/2025 09:36 AM EST
--- OUTSIDE RECORDS SUMMARY | 2025-05-06 13:12 | XMS_ITS | Clinical Summary ---
Author Organization [facility] Address [address] [place] [address] Phone Care Team Providers Care Newspaper Delivery Counselor Name Role Phone YogiGiselle vera Primary Care Provider [phone] Allergies No known active allergies Encounters Date Type Department Care Team Description 05/01/2025 12:39 PM EST - 05/01/2025 2:36 PM EST Emergency [facility] [address] [place] [phone] Faheem Gil MD, MPH Discharge Disposition: Home or Self Care from Last 3 Months Social History Tobacco Use Types Packs/Day Years [...] PM EST Sexual Orientation Not on file Last Filed Vital Signs Vital Sign Reading Time Taken Comments Blood Pressure 124/66 05/01/2025 2:19 PM EST Pulse 78 05/01/2025 2:19 PM EST Temperature 36.2 C (97.2 F) 05/01/2025 2:19 PM EST Respiratory Rate 16 05/01/2025 2:19 PM EST Oxygen Saturation 98% 05/01/2025 2:19 PM EST Inhaled Oxygen Concentration - - Weight - - Height - - Body Mass Index - - Plan of Treatment Health Maintenance Due Date Last Done Comments DEPRESSION SCREENING 1996 SMOKING Hx and SMOKELESS TOBACCO SCREENING 1997 HEPATITIS C SCREENING 2002 HIV ONE-TIME SCREENING (18-6 5 YEARS) 2002 PAP SMEAR 2005 INFLUENZA VACCINE (#1) 2025 COVID-19 VACCINE (1 - 2024-2 6 season) 2025 MAMMOGRAM 08/09/2026 08/09/2024, 08/09/2024 Adult Td,Tdap Booster 10/14/2028 10/14/2018 HEPATITIS A VACCINES Aged Out No long er eligible based on patient's age to complete this topic HIB VACCINES Aged Out No longer eligi ble based on patient's age to complete this topic MENINGOCOCCAL VACCINES (ACWY) Aged Out No longer eligible based on patient's age to complete this topic MENINGOCOCCAL VACCINES (B) Aged Out N o longer eligible based on patient's age to complete this topic PNEUMOCOCCAL VACCINES (0-49 years) Aged Out No longer eligible b ased on patient's age to complete this topic Medical Devices Not on file Insurance [facility] [place] [id number] Care Teams Newspaper Delivery Counselor Relationship Specialty Start Date End Date Yogijody GiselleDO jose [address] [place] [address] PCP - General Internal Medicine 05/01/25 Additional Source Comments The information contained in this document represents components of the legal health record. It is not the complete legal health record.[facility]
--- OUTSIDE RECORDS SUMMARY | 2025-05-06 13:12 | XMS_ITS | Encounter Summary ---
Author Organization [facility] Address [address] [place] [address] Care Team Providers Care Firer Automatic Stoker Name Role Phone Giselle Martinez DO Primary Care Provider [phone] Encounter Details Date Type Department Care Team (Late Contact Info) Description 03/29/2025 Results [facility] [address] [place] [address] Leilani Ascencio [place] Social History Tobacco Use Types Packs/Day Years Used Date Smoking Tobacco: Never Smokeless Tobacco: Never Alcohol Use Standard Drinks/Week Comments No 0 (1 standard drink = 0.6 oz pur e alcohol) Comments No Sex and Gender Information Value Date Recorded Sex Assigned at Female 08/03/2024 12:52 PM EST Legal Sex Female 5:45 PM EST Gender Identity Female 08/03/2024 12:51 PM EST Sexual Orientation Straight 08/03/2024 12 :52 PM EST 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 [address] [facility] [address] [place] [phone] Rachael Abdi PA [address] [place] [phone] 10/16/2025 10:00 AM EDT Office Visit Obstetrics & Gynecology - [facility] [address] [place] [phone] Erik Peguero CNM [address] [place] [address] documented as of this encounter Visit Diagnoses Not on filedocumented in this encounter Care Teams Firer Automatic Stoker Relationship Specialty Start Date End Date Giselle Martinez [place] [address] PCP - General 03/26/23 documented as of this encounter
--- OUTSIDE RECORDS SUMMARY | 2025-05-06 13:12 | XMS_ITS | Clinical Summary ---
Author Organization [facility] Address [address] [place] [address] Phone Care Team Providers Care Ager Operator Name Role Phone Giselle Martinez DO Primary Care Provider [phone] Allergies No known active allergies Medications Tri-Estarylla [...] Overview (06/06/2024): Pt states her pcp at [facility] monitors her cholesterol, she is not on any medications Encounters Date Type Department Care Team Description 03/29/2025 Results Follow-Up Internal Medicine - [facility] [address] [place] [phone] Leilani Ascencio MA from Last 3 Months Immunizations Immunization Administration Dates Next Due Hep B, Unspecified 12/02/2012 Pfizer SARS-CoV-2 COVID-19, mRNA, LNP-S, preservative free 05/11/2021 Tdap Tetanus diptheria acell ular pertussis (Boostrix; Adacel) 7yo and older 10/14/2018 Surgical History Surgery Date Site/Laterality Comments OTHER SURGICAL HISTORY 2004 PROCEDURE: TN DILATION & CURETTAGE DX&/THER NONOBSTETRIC OTHER SURGICAL HISTORY 2005 PROCEDURE: TN DILATION & CURETTAGE DX&/THER NONOBSTETRIC Medical History [...] 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 Not on file [...] Vag-S pont None N [facility], [facility] 1 2004 2006 012 Term 41w 0d 3997 g (141 oz) M Vag-V acuum None Livin g dr garibay Complications: Intolera nce,Oligohydramnios Delivery Location:[facility] Comments:NRFHR , IOL, fob 2 019 Term 41w 4d M Vag-S pont Livin g 8 9 A Castillo, CNM Delivery Location:[facility] Last Filed Vital Signs Vital Sign Reading [...] AM EST Office Visit Obstetrics & Gynecology [facility] [address] [place] [phone] Fartun Cunningham, ZOFIA [address] [place] [address] 06/02/2025 4:30 PM EST Office Visit [facility] [address] [facility] [address] [place] [phone] Rachael Abdi, PA [address] [place] [phone] 10/16/2025 10:00 AM EDT Office Visit Obstetrics & Gynecology [facility] [address] [place] [phone] Erik Peguero, ZOFIA [address] [place] [address] Health Maintenance Due Date Last Done Comments [...] LAB 03/22/2025 MG MAMMO DIGITAL SCREENING W BENNY BILAT Routine 08/09/2024 9:13 AM EST Encounter for screening for malignant neoplasm of breast, unspecified screening modality DEPRESSION SCREENING Routine 02/02/2024 HPV Routine 04/27/2023 LIPID PANEL Routine 04/03/2023 HIV SCREENING Routine 05/05/2018 from Last 3 Months or Most Recently Relevant to Health Maintenance Results * External Xray Report (03/29/2025) Anatomical Region Laterality Modality Radiographic Bing ging us Provider [facility] IMG XR PROCEDURES Final Result * External clinical lab (03/22/2025) us Provider [facility] LAB BLOOD ORDERABLES Fin al Result * Mammo Digital Screening w Benny bilat (08/09/2024 9:13 AM EST) Anatomical Region [...] Signed Date: 08/09/2024 15:53 ET Workstation ID: [id number] Transcribed By: Self Edit Transcribed Date: 08/09/2024 15:51 ET Narrative 08/09/2024 3:53 PM EST EXAM: MAMMO DIGITAL SCREENING W BENNY BILAT EXAM DATE AND TIME: 08/09/2024 8:59 AM HISTORY: Breast cancer screen, avg risk, asymptomatic (Age => 40y) COMPARISON: This is a baseline examination. TECHNIQUE: Bilateral digital breast tomosynthesis was performed in the MLO projection. Computer aided detection with MeMeMe AI 3D 3.1 was employed. TISSUE DENSITY: b: There are scattered areas of fibroglandular density. FINDINGS: No suspicious masses, grouped microcalcifications, or areas of architectural distortion are seen. The skin and vascularity are unremarkable. Procedure Note Hever Gordon MD - 08/09/2024 EXAM: MAMMO DIGITAL SCREENING W BENNY BILAT EXAM DATE AND TIME: 08/09/2024 8:59 AM HISTORY: Breast cancer screen, avg risk, asymptomatic (Age => 40y) COMPARISON: This is a baseline examination. TECHNIQUE: Bilateral digital breast tomosynthesis was performed in the MLOprojection. Computer aided detection with iCAGuideWall AI 3D 3.1 wasemployed. TISSUE DENSITY: b: [...] Signed Date: 08/09/2024 15:53 ET Workstation ID: [id number] Transcribed By: Self Edit Transcribed Date: 08/09/2024 15:51 ET Result [facility] Giselle Martinez DO IMG BI PROCEDURES Final Result * Depression Screening (02/02/2024) [facility] Depression Screening abstracted Result [facility] Provider HEALTH MAINTENANCE Final Result * Cervical Cancer Screening: HPV (04/27/2023) [facility] Cervical Cancer Screening: HPV negative abstracted Result [facility] Provider HEALTH MAINTENANCE Final Result * (ABNORMAL) Lipid panel (04/03/2023) [facility] LDL/HDL Ratio 5(A) 0 - 4 Triglycerides 69 0 - 150 mg/dL Cholesterol 261(A) 0 - 200 mg/dL HDL 55 >=40 mg/dL LDL Cholesterol 193(A) 0 - 100 mg/dL Blood Venous blood specimen / Unknown Result [facility] Historical Provider LAB BLOOD ORDERABLES [place] l Result * HIV Screening (05/05/2018) [facility] HIV Screening abstracted Result [facility] Provider HEALTH MAINTENANCE Final Result from Last 3 Months or Most Recently Relevant to Health Maintenance Insurance [facility] [employer] Care Teams Ager Operator Relationship Specialty Start Date End Date Giselle Martinez DO [address] [place] [address] PCP - General 03/26/23
== END 2025-05-06 13:09 | disposition home or self-care (01) ==
LOC: HO.MRI 13:08
PROVIDERS: PCP Internal Medicine; Visit Provider Internal Medicine Rheumatology
DX: M79.642 Pain in left hand (principal)
CPT/HCPCS: 73218

== ENCOUNTER 2025-06-01 07:59 | Outpatient (AMB) | payer OTHER, SELFPAY ==
--- NOTE | 2025-06-01 08:04 | MHC.OFFVIS ---
Vital Signs 06/01/25 08:05 Height 5 ft 6 in Weight 180 lb 12.465 oz BMI 29.2 BP 100/70 Blood Pressure Location Rt brachial Position Sitting Pulse 84 Pulse Source Pulse Oximeter Pulse Oximetry (%) 98 Oxygen Delivery Method Room Air Intake Visit Reasons: review results Intake Note: Patient presents today for arthritis Accompanied by: Self / Same As Patient Allergies No Known Allergies Allergy (Verified 06/01/25 08:05) HPI HPI review results: Details: Continues to have pain in joint pain. More pain than stiffness. Paresthesia in bilateral hands > feet at night. Nocturnal paraesthesia in hands is occurring daily. in She uses ibuprofen 600 mg every 6 hours prn joint pain. She is experiencing paraesthesia in her feet when she is sitting down on the toilet. She has been experiencing most pain in her left 1st MCP. She has pain when she presses on the joint. She was experiencing rib pain for a few weeks and went to urgent care. She had a chest x-ray, which was normal per patient. She was prescribed naproxen, which she has not started. [facility] Medical History Arthralgia Hyperlipidemia High cholesterol Surgical History Hx of dilation and curettage Family History Maternal Grandfather Coronary artery disease Father Diabetes Hyperlipidemia Mother Prediabetes Social History Household Members: Spouse and Children Housing: House Alcohol intake: never Patient Tobacco Use Status: Never used Tobacco Sexual orientation: Straight/Heterosexual Gender identity: Female Female Reproductive History Menstrual Age of Menarche: 11 Physical Exam Vital Signs: Last Vital Signs Pulse 84 06/01/25 08:05 BP 100/70 06/01/25 08:05 Pulse Ox 98 06/01/25 08:05 Oxygen Delivery Method Room Air 06/01/25 08:05 BMI result Body Mass Index 29.2 Const Other: General: Comfortable CVS: RRR Respiratory: clear to auscultation bilaterally. Good respiratory effort Skin: No lesions seen MSK: No tender joints. No synovitis. Normal range of motion of upper extremities and lower extremities. No MTP tenderness. Negative Phalen's test. Assessment & Plan Assessment & Plan (1) Bilateral hand pain: Comment: Progressive worsening polyarthralgias now involving both hands is concerning for development of early inflammatory arthritis. Initially she had right MCP synovitis resolved with meloxicam a few years ago. X-rays bilateral hands from 2021 were normal with negative rheumatoid factor, anti CCP antibody and HLA B27. She had slight elevation CRP May 2022 at my 1st visit with patient. Most recent workup has revealed persistent elevation in CRP but with normal hand x-rays and right hand MRI not revealing any signs of inflammatory arthritis. Her exam today is unremarkable. She reports that she continues to have joint pain. We discussed symptomatic management with NSAIDs since she has had benefit with it in the past. Code(s): M79.641 - Pain in right hand; M79.642 - Pain in left hand Category: Medical Plan: Start meloxicam 15 mg daily for 2 weeks then use it as needed for joint pain If meloxicam is not helpful for alleviating joint pain, she will use naproxen 500 mg b.i.d. that she obtained from urgent Care when she presented with rib pain Labs ordered including inflammatory markers, creatinine, AST and ALT. I am repeating CBC because she had slight leukopenia on labs from February. Return to clinic in 3 months or sooner if joint pain progress (2) Polyarthralgia: Code(s): M25.50 - Pain in unspecified joint Category: Medical Plan: See above (3) Paresthesia of both hands: Code(s): R20.2 - Paresthesia of skin Category: Medical Plan: Labs ordered to rule out metabolic neuropathy. If labs are unremarkable, I will order EMG study for further evaluation of her symptoms (4) Paresthesia of both feet: Code(s): R20.2 - Paresthesia of skin Category: Medical Plan: Labs ordered to rule out metabolic neuropathy. If labs are unremarkable, I will order EMG study for further evaluation of her symptoms Orders: Orders Erythrocyte Sedimentation Rate Today M25.50 - Pain in unspecified joint, Z79.899 - Other longterm (current) drug therapy C Reactive Protein Today M25.50 - Pain in unspecified joint, Z79.899 - Other terminal manager (current) drug therapy TSH reflex Free T4 Today M25.50 - Pain in unspecified joint Hemoglobin A1c Today M25.50 - Pain in unspecified joint Complete Blood Count Auto Diff Today D72.819 - Decreased white blood cell count, unspecified Vitamin B12 Today R20.2 - Paresthesia of skin Creatinine Today M25.50 - Pain in unspecified joint Alanine Aminotransferase Today M25.50 - Pain in unspecified joint Aspartate Amino Transferase Today M25.50 - Pain in unspecified joint Medications: New meloxicam 15 mg PO DAILY 30 tabs 2RF joint pain Coding Level of Care Code Est Pt Level 4 (57537) Complex visit Add On G2211 Diagnoses Bilateral hand pain M79.641; M79.642 Polyarthralgia M25.50 Paresthesia of both hands R20.2 Paresthesia of both feet R20.2
[2025-06-01 08:05] VITALS: BP 100/70; PULSE 84; O2SAT 98; BMI 29.2
--- OUTSIDE RECORDS SUMMARY | 2025-06-01 08:06 | XMS_ITS | Clinical Summary ---
Author Organization [facility] Address [address] [place] [address] Phone Care Team Providers Care Laboratory Supervisor Name Role Phone YogiGiselle vera Primary Care Provider [phone] Allergies No known active allergies Encounters Date Type Department Care Team Description 05/01/2025 12:39 PM EST - 05/01/2025 2:36 PM EST Emergency [facility] Emergency Dept [address] [place] [phone] Virgil Gil MD, MPH Discharge Disposition: Home or [...] this topic Medical Devices Not on file Procedures Procedure Name Priority Date/Time Associated Diagnosis Comments ECG 12-LEAD STAT 05/01/2025 12:14 PM EST from Last 3 Months Results * ECG 12-LEAD (05/01/2025 12:14 PM EST) Systolic Blood Pressure [facility] Diastolic Blood Pressure [facility] Ventricular Rate EKG/MIN 70 BPM [facility] Atrial Rate 70 BPM [facility] MD Interval 152 ms [facility] QRS Duration 68 ms [facility] QT Interval 412 ms [facility] QTC Interval 444 ms [facility] P [place] 46 degrees [facility] R Wave [place] 61 degrees [facility] T Wave [place] 61 degrees [facility] 05/01/2025 12:1 4 PM EST 05/22/2025 1:41 PM EST Narrative [facility] - 05/22/2025 1:41 PM EST LOCATION: EMERGENCY DEPT DIAGNOSIS : DIZZINESS REF: VIRGIL GIL MD NORMAL SINUS RHYTHM LOW PRECORDIAL VOLTAGE NO PREVIOUS ECGS AVAILABLE us Protocol [facility] ECG ORDERABLES Final Res ult [facility] from Last 3 Months Insurance [facility] [place] [id number] Care Teams Laboratory Supervisor Relationship Specialty Start Date End Date Giselle Martinez DO [address] [place] [address] PCP - General Internal Medicine 05/01/25 Additional Source Comments The information contained in this document represents components of the legal health record. It is not the complete legal health record.[facility]
== END 2025-06-01 08:39 | disposition home or self-care (01) ==
LOC: HO.RHES 08:00
PROVIDERS: PCP Internal Medicine; Visit Provider Internal Medicine Rheumatology
DX: M79.641 Pain in right hand (principal); M79.642 Pain in left hand; M25.50 Pain in unspecified joint; R20.2 Paresthesia of skin
CPT/HCPCS: 99214

== ENCOUNTER 2025-06-01 07:59 | Outpatient (REF) | payer OTHER, SELFPAY ==
[2025-06-01 13:22] LABS: MANUAL DIFF FLAG NO
[2025-06-01 13:38] LABS: Hematocrit 38.0 % (37.0-47.0); Hemoglobin 12.6 g/dl (12.0-16.0); Imm Gran Abs Auto 0.02 X10*3/uL (0.00-0.03); Imm Gran Pct Auto 0.3 % (0.0-0.4); Lymphocytes Absolute Auto 2.2 X10*3/uL (1.2-4.9); Mean Corpuscular HGB Conc 33.2 g/dl (31.0-35.0); Mean Corpuscular Hemoglobin 27.9 pg (27.0-33.0); Mean Corpuscular Volume 84.3 fL (80.0-98.0); NRBC Abs Auto 0.000 X10*3/uL (0.0-0.012); NRBC Pct Auto 0.0 /100WBC (0.0-0.2); Platelet Count 257 X10*3/uL (160-400); Red Blood Count 4.51 X10*6/uL (4.20-5.50); White Blood Count 6.4 X10*3/uL (4.8-10.8)
[2025-06-01 14:19] LABS: Erythrocyte Sedimentation Rate 15 MM/HR (0-20)
[2025-06-01 14:23] LABS: Alanine Aminotransferase 17 U/L (0-31); Aspartate Amino Transferase 24 U/L (5-31); Estimated Glomerular Filt Rate > 60
[2025-06-01 14:57] LABS: Vitamin B12 389 pg/mL (200-900)
== END 2025-06-01 08:00 | disposition home or self-care (01) ==
LOC: HO.HKASLDS 07:59
PROVIDERS: PCP Internal Medicine; Visit Provider Internal Medicine Rheumatology
DX: M79.641 Pain in right hand (principal); M79.642 Pain in left hand; D72.819 Decreased white blood cell count, unspecified; R20.2 Paresthesia of skin; Z79.899 Other long term (current) drug therapy
CPT/HCPCS: 36415; 82565; 82607; 83036; 84443; 84450; 84460; 85025; 85652; 86140; 99212